=== PATIENT | female | born 1990 | race Caucasian/White ===

== ENCOUNTER 2017-05-25 14:04 | Inpatient (IN) | payer OTHER ==
[~2017-05-25] VITALS: Ht 153 cm; Wt 78.9 kg
[2017-05-25] MEDS ORDERED: RINGERS SOLUTION,LACTATED 1,000 ML IV PRN (14:14)
[2017-05-25] MEDS ORDERED: RINGERS SOLUTION,LACTATED 1,000 ML IV SCH (14:14)
[2017-05-25] MEDS ORDERED: CITRIC ACID/SODIUM CITRATE 30 ML SOLUTION UDCUP PO PRN ×2 (14:15→22:45)
[2017-05-25] MEDS ORDERED: METOCLOPRAMIDE HCL 5 MG/ML 2 ML VIAL IVP PRN ×2 (14:15→22:45)
[2017-05-25] MEDS ORDERED: FentaNYL CITRATE-PF 100 MCG/2 ML VIAL IVP PRN (14:15)
[2017-05-25 14:49] LABS: BASOPHILS % (AUTO) 1.1 % (0.0-2.0); EOSINOPHILS % (AUTO) 0.2 % (1.0-6.0); HEMATOCRIT 40.4 % (36-46); HEMOGLOBIN 13.9 g/dL (12.0-16.0); LYMPHOCYTES # (AUTO) 2.2 K/uL (1.0-4.8); LYMPHOCYTES % (AUTO) 22.1 % (22.0-44.0); MEAN CORPUSCULAR HEMOGLOBIN 30.1 pg (26.0-34.0); MEAN CORPUSCULAR HGB CONC 34.3 G/dL (31.0-37.0); MEAN CORPUSCULAR VOLUME 88 fL (80-100); MONOCYTES # (AUTO) 0.7 K/uL (0.1-1.0); MONOCYTES % (AUTO) 6.8 % (2.0-9.0); NEUTROPHILS # (AUTO) 7.1 K/uL (1.8-7.7); NEUTROPHILS % (AUTO) 69.8 % (40.0-70.0); PLATELET COUNT (AUTO) 193 K/uL (150-450); RED BLOOD CELL COUNT(AUTO) 4.61 MIL/uL (4.00-5.20); RED CELL DISTRIBUTION WIDTH 13.9 % (11.5-14.5)
[2017-05-25] MEDS ORDERED: CALC-1038 PO (15:18)
[2017-05-25] MEDS ORDERED: FOLI0.4T4 PO (15:18)
[2017-05-25 15:21] VITALS: BP 142/90
[2017-05-25] MEDS ORDERED: OXYTOCIN 30 UNITS/LACT RINGERS 500 ML IV PRN (15:57)
[2017-05-25] MEDS ORDERED: METHYLERGONOVINE MALEATE 0.2 MG/ML VIAL IM PRN (16:00)
[2017-05-25] MEDS ORDERED: LIDOCAINE HCL/PF 1% 30 ML VIAL INJ PRN ×2 (16:00→22:45)
[2017-05-25 16:30] LABS: ANION GAP 12 mmol/L (8-16); CALCIUM, TOTAL 8.7 mg/dL (8.8-10.5); CARBON DIOXIDE 23 mmol/L (22-29); CHLORIDE 103 mmol/L (98-107); CREATININE 0.66 mg/dL (0.60-1.30); GLOMERULAR FILTR. RATE CALC > 60 mL/min (>60); GLUCOSE,RANDOM 76 mg/dL (70-110); POTASSIUM 4.1 mmol/L (3.5-5.1); SODIUM SERUM 138 mmol/L (136-145); UREA NITROGEN, BLOOD 9 mg/dL (7-18)
[2017-05-25 16:36] LABS: ALANINE AMINOTRANSFERASE 18 U/L (12-78); ALBUMIN 2.6 g/dL (3.4-5.0); ALKALINE PHOSPHATASE 203 U/L (46-116); ASPARTATE AMINOTRANSFERASE 25 U/L (15-37); BILIRUBIN,TOTAL 0.3 mg/dL (0.1-1.0); TOTAL PROTEIN, SERUM 6.5 g/dL (6.4-8.2); URIC ACID 4.1 mg/dL (2.6-7.2)
[2017-05-25] MEDS ORDERED: AMPICILLIN SODIUM 2 GM/NS 100 ML IV ONE (17:15)
[2017-05-25] MEDS ORDERED: BUPIVACAINE HCL/PF 0.5% 10 ML VIAL ONE (18:55)
[2017-05-25] MEDS ORDERED: OXYGEN THERAPY IH SCH (20:00)
[2017-05-25] MEDS: AMPICILLIN SODIUM 1 GM/NS 50 ML IV SCH (22:01)
[2017-05-25] MEDS: RINGERS SOLUTION,LACTATED 1,000 ML IV SCH (22:37)
[2017-05-25] MEDS ORDERED: OXYTOCIN 30 UNITS/LACT RINGERS 500 ML IV ONE (22:37)
[2017-05-25] MEDS: FentaNYL CITRATE-PF 100 MCG/2 ML VIAL IVP PRN ×2 (22:54→23:00)
[2017-05-26] MEDS: RINGERS SOLUTION,LACTATED 1,000 ML IV SCH ×2 (01:47→06:36)
[2017-05-26] MEDS ORDERED: FentaNYL/BUPIV 0.125%/NS/PF 200 ML ED PRN (02:15)
[2017-05-26] MEDS ORDERED: DiphenhydrAMINE HCL 50 MG/ML VIAL IVP PRN (02:15)
[2017-05-26] MEDS ORDERED: ONDANSETRON HCL 4 MG/2 ML VIAL IVP PRN (02:15)
[2017-05-26] MEDS ORDERED: NALBUPHINE HCL 10 MG/ML VIAL IVP PRN (02:15)
[2017-05-26] MEDS ORDERED: PROMETHAZINE HCL 12.5 MG in SODIUM CHLORIDE 0.9% 50 ML IV PRN (02:15)
[2017-05-26] MEDS ORDERED: ROPIVACAINE HCL 0.2% 100 ML ED ONE ×2 (02:19→09:49)
[2017-05-26] MEDS ORDERED: LIDOCAINE HCL/PF 2% 5 ML VIAL ONE (02:19)
[2017-05-26] MEDS: AMPICILLIN SODIUM 1 GM/NS 50 ML IV SCH ×3 (02:40→07:30)
[2017-05-26] MEDS ORDERED: CeFAZolin 2 GM/DEXTROSE 50 ML IV ONE ×2 (12:40→13:00)
[2017-05-26] MEDS ORDERED: ACETAMINOPHEN/CODEINE 300-30 MG TABLET PO PRN ×2 (13:30)
[2017-05-26] MEDS ORDERED: LANOLIN 7 GM OINTMENT TP PRN (13:30)
[2017-05-26] MEDS ORDERED: BENZOCAINE 20%/MENTHOL 56 GM SPRAY CANISTER TP PRN (13:30)
[2017-05-26] MEDS: GLYCERIN/WITCH HAZEL LEAF 40 PADS JAR TP PRN (15:14)
[2017-05-26] MEDS: IBUPROFEN 800 MG TABLET PO SCH ×2 (15:14→21:00)
[2017-05-26] MEDS: MAGNESIUM HYDROXIDE SUSPENSION 30 ML UDCUP PO SCH (20:37)
[2017-05-27] MEDS: IBUPROFEN 800 MG TABLET PO SCH ×3 (00:21→12:18)
[2017-05-27] MEDS: MAGNESIUM HYDROXIDE SUSPENSION 30 ML UDCUP PO SCH (08:26)
[2017-05-27] MEDS ORDERED: IBUP-2070 PO (11:39)
[2017-05-27] MEDS ORDERED: DSS100 PO (11:40)
[2017-05-27] MEDS: GLYCERIN/WITCH HAZEL LEAF 40 PADS JAR TP PRN (13:50)
== END 2017-05-27 14:15 | disposition home or self-care (01) | DRG 775 ==
LOC: OBSVTOIN 14:04 → 4S 14:04 → INTOOBSV 14:04
PROVIDERS: ADMIT Obstetrics & Gynecology; ATTEND Obstetrics & Gynecology
PROC: 10D07Z6 Extraction of Products of Conception, Vacuum, Via Natural or Artificial Opening (ICD-10-PCS; principal; 2017-05-26)
PROC: 0W8NXZZ Division of Female Perineum, External Approach (ICD-10-PCS; 2017-05-26)
PROC: 3E0R3BZ Introduction of Anesthetic Agent into Spinal Canal, Percutaneous Approach (ICD-10-PCS; 2017-05-26)
PROC: 00HU33Z Insertion of Infusion Device into Spinal Canal, Percutaneous Approach (ICD-10-PCS; 2017-05-26)
DX: O99.824 Streptococcus B carrier state complicating childbirth (principal); Z37.0 Single live birth; Z3A.40 40 weeks gestation of pregnancy
CPT/HCPCS: 84550; J0290; J0690; J2590; J2795; J3010; J3490; J7120